=== PATIENT | female | born 1950 | race Two or more races ===

== ENCOUNTER → 2022-07-29 | Emergency (ER) | payer OTHER ==
[~2022-07-29] VITALS: Ht 157.5 cm; Wt 61.2 kg
[~2022-07-29] MED LIST: COZAAR50 MG PO; DIABETIC SILTU118 M1 PO; FLONASE ALLERG9.9 ML NASAL; SINUS RINSE ST1 EACH NASAL; SYNTHROID100 MCG PO
== END | disposition home or self-care (01) ==
LOC: ER 19:17
DX: U07.1 COVID-19 (principal); I10 Essential (primary) hypertension